=== PATIENT | female | born 1965 | race Caucasian/White ===

== ENCOUNTER 2025-01-22 13:38 | Outpatient (AMB) | payer OTHER, SELFPAY ==
--- NOTE | 2025-01-22 13:39 | A.OFFPC_ITS ---
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 Required: No Accompanied by: Self / Same As Patient Allergies Sulfa (Sulfonamide Antibiotics) Adverse Reaction (Severe, Verified 01/22/25 13:40) Shortness of Breath penicillin G Adverse Reaction (Intermediate, Verified 01/22/25 13:40) Hives Medication List - Last Reconciled 01/22/25 by Sylvie Hess MD albuterol sulfate 90 mcg/actuation 1 puff inhalation Q4H alprazolam 0.25 mg PO DAILY PRN ascorbate calcium (vitamin C) 500 mg PO DAILY azelaic acid 15% topical QAM biotin (Hair, Skin and Nails (biotin)) mcg PO calcium carbonate 600 mg PO DAILY cholecalciferol (vitamin D3) 50 mcg PO DAILY fluorouracil 5% appl topical BID PRN fluticasone furoate-vilanterol 200-25 mcg/dose (Breo Ellipta) 1 ea inhalation DAILY minoxidil 1.25 mg PO DAILY multivitamin 1 tab PO DAILY niacinamide 500 mg PO BID omeprazole 20 mg PO DAILY tretinoin 0.025% appl topical BEDTIME zinc acetate 25 mg PO DAILY Tobacco use date assessed: 01/22/25 Dental Screening Dental Screen Date: 01/22/25 Did you have a dental visit in the last 12 months?: No Did you have a dental problem in the last 6 months where you did not have access to dental care?: No HPI HPI Comments History of Present Illness Details The patient is a 59 year old female presenting for a physical. Anxiety: The patient reports increased anxiety recently due to switching schools after 15 years, describing herself as very anxious and neurotic. She took sertraline for anxiety but has tapered off recently. She also has a prescription for alprazolam 0.25 mg, which she uses as needed, primarily for flying. Reactive Airway Disease: For her reactive airway disease, the patient reports using Breo Ellipta daily and has an albuterol inhaler for as-needed use, which she rarely needs. Gastroesophageal Reflux Disease: The patient reports taking omeprazole 20 mg for heartburn, which she has been purchasing [id number]. Musculoskeletal Pain: The patient reports being achy, specifically in her hips, which has impacted her sleep and ability to exercise. She also reports pain in her elbow, which may be related to tendonitis. She has tried Advil for the pain. Rodrigues's Cyst: The patient has a Rodrigues's cyst in her right leg, diagnosed at [facility] over the summer. She received a cortisone injection which provided relief for about three weeks. History of Basal Cell Carcinoma: The patient has a history of basal cell carcinoma and follows with dermatology. She recently had a questionable lesion biopsied to rule out basal cell carcinoma, which was negative. She uses minoxidil and niacinamide as prescribed by her substation operator conversion. Excessive Daytime Sleepiness: The patient reports feeling tired easily and has trouble sleeping, which she attributes to being achy. She endorses a high chance of dozing off while sitting and reading, watching TV, sitting inactive in public, and as a passenger in a car. She also reports being able to sleep any time in the afternoon or after lunch. Her daughter has told her that she snores, but she denies waking up gasping for air. She has not had a home sleep study before. ESS scale score of 23. Health Maintenance: The patient had colonoscopy September 2024 done at [facility] Angel, which was normal with no polyps found per patient. Following the procedure, she experienced severe abdominal and shoulder pain, requiring an emergency room visit where she received morphine. A CT scan was performed to rule out perforation and cardiac issues, with results being normal. Her next colonoscopy is due in 5-7 years. Her mammogram is typically scheduled on a March. She has a gynecology appointment for a Pap smear scheduled for February 27 with PA at [facility]. Her last eye exam was about two years ago at [facility]. 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 Diagnostic Results: - Screening: PHQ-9 score was 0. - Screening: ARMANDO-7 score was 0. - Screening: Viroqua Sleepiness Scale sc ore was 23 out of 24. [facility] Medical History (Updated 01/22/25 @ 17:35 by Sylvie Hess MD) Snoring Routine medical exam Generalized anxiety disorder Basal cell carcinoma Reactive airway disease Family History (Updated 01/22/25 @ 13:48 by Beatriz Briceño CMA) Mother Colon polyp Father Atrial fibrillation Maternal Grandfather No problems noted. 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 1. Little interest or pleasure in doing things: not at all 2. Feeling down, depressed, or hopeless: not at all 3. Trouble falling or staying asleep, or sleeping too much: not at all 4. Feeling tired or having little energy: not at all 5. Poor appetite or overeating: not at all 6. Feeling bad about yourself - or that you are a failure or have let yourself or your family down: not at all 7. Trouble concentrating on things, such as reading the newspaper or watching television: not at all 8. Moving or speaking so slowly that other people could have noticed. Or the opposite - being so fidgety or restless that you have been moving around a lot more than usual: not at all 9. Thoughts that you would be better off or of hurting yourself in some way: not at all Total score: 0 Depression Screening Interpretation: Negative Depression Screening Done: Yes 77060 - PHQ-9 Billing: Yes Source: Developed by Drs. Aron Welch, Lucia Duncan, Jm Eubanks and colleagues, with an educational verito from [employer]. Thrive Questionnaire Date Thrive assessed: 01/22/25 I am a: Patient What is your living situation today?: I have a steady place to live Within the past 12 months, did the food you bought not last and you didn't have the money to get more?: Never true Within the past 12 months, did you worry whether your food would run out before you got money to buy more?: Never true Do you have trouble paying for medicines?: No Do you have trouble getting transportation to medical appointments?: No Do you have trouble paying your heating and electricity bill?: No Do you have trouble taking care of your child, family member or friend?: No Do you have trouble with day-to-day activities such as bathing, preparing meals, shopping, managing finances, etc.?: No Are you currently unemployed and looking for a job?: No Are you interested in more education?: No Please select the resources that you would like help with: None THRIVE Score: 0 AUDIT C Alcohol Use Questionnaire (AUDIT-C) 1. How often do you have a drink containing alcohol?: Monthly or less 2. How many drinks containing alcohol do you have on a typical day when you are drinking?: 1 or 2 3. How often do you have six or more drinks on one occasion?: Never Total Score: 1 ARMANDO-7 AMB Questionnaire ARMANDO-7 Date ARMANDO - 7 assessed: 01/22/25 Feeling nervous, anxious, or on edge: 0 = Not at all Not being able to stop or control worryin = Not at all Worrying too much about different things: 0 = Not at all Trouble relaxin = Not at all Being so restless that it is hard to sit still: 0 = Not at all Becoming easily annoyed or irritable: 0 = Not at all Feeling afraid as if something awful might happen: 0 = Not at all Total ARMANDO-7 score (0-4 normal; 5-9 mild; 10-14 moderate; 15-21 severe): 0 Source: Developed by Drs. Aron Welch, Lucia Duncan, Jm Eubanks and colleagues, with an educational verito from [employer]. Review of Systems Narrative Review of Systems - Respiratory: Denies wheezing. - Abdominal: Reports normal bowel sounds and denies pain on palpation. - Neurological/Sleep: Reports feeling tired easily, struggling with sleep, and excessive daytime sleepiness. - Musculoskeletal: Reports being achy, with hip and elbow pain. - Psychiatric: Reports increased anxiety and feeling neurotic related to a recent job change. Physical exam (Primary Care) Vital Signs: Last Vital Signs Temp 97.1 F 01/22/25 13:40 Pulse 78 01/22/25 13:40 Resp 16 01/22/25 13:40 BP 124/80 01/22/25 13:40 Pulse Ox 97 01/22/25 13:40 Oxygen Delivery Method Room Air 01/22/25 13:40 BMI result Body Mass Index 25.3 Tobacco/Smoking Status: Tobacco use Status Tobacco use date assessed 01/22/25 01/22/25 13:43 Patient Tobacco Use Status Former Tobacco user 01/22/25 13:50 e-Cigarette/Vaping Use Never Used 01/22/25 13:50 PHQ-9: PHQ-9 Score PHQ-9: Total score 0 01/22/25 16:20 Depression Screening Interpretation: Negative Thrive Assessment: Date of Thrive Assessment Date Thrive assessed 01/22/25 01/22/25 16:21 Narrative Physical Exam - Vitals: Blood pressure is 124/80. - Gen: NAD - Head/ENT: Cerumen impaction noted in the left ear; right ear is clear; oropharynx clear with no redness. - Eyes: Extraocular movements are intact. - Lungs: Clear to auscultation bilaterally; no wheezing. - Cardiovascular: Regular heart rhythm with a soft murmur noted. - Vascular: Carotid arteries are clear; no bruits auscultated. - Abdomen: Normal bowel sounds auscultated; soft and nontender to palpation. - Extremities: No swelling noted in both legs. Coding Level of Care Code Est Pt Prev Care 40-64y(78964) Add On Preventative Visit Only Diagnoses Generalized anxiety disorder F41.1 Routine medical exam Z00.00 Snoring R06.83 Mild intermittent reactive airway disease without complication J45.20 Asthma severity: mild Asthma persistence: intermittent Asthma complication type: uncomplicated Additional Codes PHQ-9 - 21887 - PHQ-9 Billing: Yes ([id number]) Assessment & Plan Assessment & Plan (1) Generalized anxiety disorder: Code(s): F41.1 - Generalized anxiety disorder Category: Medical (2) Routine medical exam: Code(s): Z00.00 - Encounter for general adult medical examination without abnormal findings Category: Medical (3) Snoring: Code(s): R06.83 - Snoring Category: Medical (4) Reactive airway disease: Code(s): J45.909 - Unspecified asthma, uncomplicated Category: Medical Qualifiers: Asthma severity: mild Asthma persistence: intermittent Asthma complication type: uncomplicated Qualified Code(s): J45.20 - Mild intermittent asthma, uncomplicated Plan Assessment and Plan 1. Annual physical and health maintenance - The patient is up to date on colonoscopy and is scheduled for her gynecological exam. - Will place lab orders for fasting labs, including a cholesterol profile and thyroid panel. 2. Excessive Daytime Sleepiness - The patient scored 23/24 on the Viroqua Sleepiness Scale, indicating excessive sleepiness. - This raises concern for sleep apnea, especially given her report of snoring and the potential risk while driving. - Plan is to refer her to the sleep clinic for a sleep study. 3. Musculoskeletal pain - The patient reports hip and elbow pain that interferes with sleep and exercise. - Advised to try topical pain patches (e.g., Salonpas), and to use Tylenol Arthritis or Extra Strength instead of Advil to avoid stomach irritation. - Also recommended low-impact exercises like water aerobics, stationary bike, and quad strengthening. 4. Reactive airway disease - The patient is stable on daily Breo Ellipta and rarely uses her albuterol inhaler. - A refill for Breo will be sent to the pharmacy. 5. Gastroesophageal reflux disease - The patient has been buying omeprazole [id number]. - A 90-day prescription for omeprazole 20 mg daily will be sent to the pharmacy. 6. Cerumen impaction, left ear - Advised the patient to use Debrox eardrops to soften the wax, followed by gentle irrigation. 7. Anxiety - The patient reports increased anxiety related to a new job but has tapered off her medication and notes she is in a better space mentally. - She has alprazolam for as-needed use. - Will monitor and she will reach out if symptoms worsen. 8. Follow-up - The patient will follow up in 4 months to review lab results and the outcome of the sleep study. Plan - Referral to sleep medicine for evaluation of excessive daytime sleepiness, with concern for sleep apnea. - Placed orders for fasting labs, including a cholesterol profile and thyroid panel. - Recommended low-impact exercises such as water aerobics, stationary bike, and quad strengthening for musculoskeletal pain. - Advised patient to use Tylenol Arthritis or Extra Strength for pain instead of Advil and to try topical pain patches at night. - as above Patient Instructions - Go for fasting lab work (do not eat or drink anything but water for 8-10 hours beforehand). - You will be contacted by the sleep clinic to schedule a sleep study to investigate your daytime sleepiness. - For your hip and knee pain, try low-impact exercises like water aerobics or using a stationary bike. - For pain, use Tylenol (Arthritis or Extra Strength) instead of Advil to protect your stomach. You can also try a pain patch, like Salonpas, on the area before bed. Orders: Orders Lipid Panel Today Z00.00 - Encounter for general adult medical examination without abnormal findings Comprehensive Met. Panel Today Z00.00 - Encounter for general adult medical examination without abnormal findings Complete Blood Count Auto Diff Today Z00.00 - Encounter for general adult medical examination without abnormal findings TSH reflex Free T4 Today Z00.00 - Encounter for general adult medical examination without abnormal findings Referrals Sleep Medicine Referral R06.83 - Snoring Medications: New fluticasone furoate-vilanterol 200-25 mcg/dose (Breo Ellipta) 1 ea inhalation DAILY 60 ea 11RF omeprazole 20 mg PO DAILY 90 caps 3RF
[2025-01-22 13:40] VITALS: BP 124/80; PULSE 78; RESP 16; TEMP 36.2; O2SAT 97; BMI 25.3
--- OUTSIDE RECORDS SUMMARY | 2025-01-22 19:55 | XMS_ITS | Encounter Summary ---
Author Organization [facility] Address [address] [place] [address] Phone Care Team Providers Care Grading Clerk Name Role Phone Sylvie Hess MD Primary Care Provider + Encounter Details Date Type Department Care Team (Latest Contact Info) Description 03/02/2019 Transcribe Orders [facility] Lab Main [address] [place] [address] Renita Lang MD, MD [address] [place] [address] [email or web address] Crushing injury of multiple sites of trunk (Primary Dx) Social History Tobacco Use Types Packs/Day Years Used Date Smoking Tobacco: Never Smokeless Tobacco: Never Comments Unknown Sex and Gender Information Value Date Recorded Sex Assigned at Not on file Legal Sex Female 6:58 PM EST Gender Identity Not on file Sexual Orientation Not on file documented as of this encounter Plan of Treatment Upcoming Encounters Date Type Department Care Team (Late st Contact Info) Description 03/14/2025 10:00 AM EST Office Visit [facility] [address] [place], [place] [id number] Alejandra Carrera MD [address] [place] [address], [address] [place] [id number] documented as of this encounter Results * (ABNORMAL) Wound culture/smear (03/02/2019 4:25 PM EST) Special Requests GRAM STAIN, CULTURE, SENSITIVITY 03/02/2019 7:49 PM EST [facility] GRAM STAIN Rare POLYS 03/03/2019 5:41 AM EST [facility] GRAM STAIN NO ORGANISMS SEEN 03/03/2019 5:41 AM EST [facility] Wound Culture/Smear Few COAGULASE NEGATIVE STAPHYLOCOCCUS( A) 03/04/2019 11:16 AM EST [facility] Skin 03/02/2019 4:25 PM EST 03/02/2019 9:11 PM EST us Renita Lang MD LAB MICROBIOLOGY CULTURE ORDER ANITA Final Result [facility] [address] [place] [address] documented in this encounter Visit Diagnoses Diagnosis Crushing injury of multiple sites of trunk- Primary documented in this encounter Care Teams Grading Clerk Relationship Specialty Start Date End Date Sylvie Hess MD PCP - General Internal Medicine 06/01/18 documented as of this encounter Additional Source Comments The information contained in this document represents components of the legal health record. It is not the complete legal health record.[facility]
--- OUTSIDE RECORDS SUMMARY | 2025-01-22 19:55 | XMS_ITS | Encounter Summary ---
Author Organization [facility] Address [address] [place] [address] Phone Care Team Providers Care Early Years Teacher Name Role Phone Sylvie Hess MD Primary Care Provider + Reason for Visit * Reason Comments Medication Refill Encounter Details Date Type Department Care Team (Late Contact Info) Description 10/08/2019 Refill [facility] [address] [place] [address] [address] [place] [address] Alejandra Carrera MD [address] [place] [phone] [email or web address] Medication Refill Social History Tobacco Use Types Packs/Day Years Used Date Smoking Tobacco: Never Smokeless Tobacco: Never Comments Unknown Sex and Gender Information Value Date Recorded Sex Assigned at Not on file Legal Sex Female 6:58 PM EST Gender Identity Not on file Sexual Orientation Not on file documented as of this encounter Plan of Treatment Upcoming Encounters Date Type Department Care Team (Late Contact Info) Description 03/14/2025 10:00 AM EST Office Visit [facility] [address] [place] [address] Alejandra Carrera MD [address] [place] [phone] [email or web address] documented as of this encounter Visit Diagnoses Diagnosis Other acne documented in this encounter Care Teams Early Years Teacher Relationship Specialty Start Date End Date Sylvie Hess MD PCP - General Internal Medicine 06/01/18 documented as of this encounter Additional Source Comments The information contained in this document represents components of the legal health record. It is not the complete legal health record.[facility]
--- OUTSIDE RECORDS SUMMARY | 2025-01-22 19:55 | XMS_ITS | Clinical Summary ---
Author Organization [facility] Address [address] [place] [address] Phone Care Team Providers Care Packing Attendant Name Role Phone Sylvie Hess MD Primary Care Provider + Allergies Active Allergy Reactions Criticality Noted Date Comments Penicillins Hives 04/01/2004 Sulfa (Sulfonamide Antibiotics) Itching,Other (See Comments) 04/01/2004 Bronchospasm or Wheezing Medications spironolactone (ALDACTONE) 50 MG tablet Take 1 tablet by mouth 3 (three) times a day. 1 Active mupirocin (BACTROBAN) 2 % ointment Apply topically 3 (three) times a day. Apply to affected area tid for at least 1 week 22 g 1 0 Active Additional Information Patient not taking.Reported on 11/29/2019 calcipotriene (DOVONEX) 0.005 % creamIndication s:Actinic keratosis Apply topically to the face 2 times a day for 4 days in combination with efudex cream. 60 g 1 Active Additional Information Patient not taking.Reported on 03/09/2024 hydrocortisone 2.5 % cream Apply topically 2 (two) times a day. 28 g 2 Active Additional Information Patient not taking.Reported on 06/18/2022 minocycline (MINOCIN) 100 MG capsuleIndicati ons:Other acne take 1 capsule by mouth twice daily 60 capsule 2 4 Active tretinoin (RETIN-A) 0.025 % creamIndication s:Other acne APPLY TOPICALLY TO FACE EVERY NIGHT AT BEDTIME 45 g 2 4 Active erythromycin-be nzoyl peroxide (BENZAMYCIN) gelIndications: Other acne Apply topically 2 (two) times a day. 279.6 g 1 4 Active fluorouraciL (EFUDEX) 5 % creamIndication s:Actinic keratosis Apply topically to the affected area 2 times a day for 2 weeks 40 g 5 Active niacinamide 500 mg tabletIndicatio ns:History of squamous cell carcinoma of skin Take 1 tablet (500 mg total) by mouth 2 (two) times a day with meals. 60 tablet 11 5 Active Active Problems Problem Noted Date Diagnosed Date Basal cell carcinoma of lower eyelid, right 12/10 Basal cell carcinoma of skin 09/22/2011 Overview (03/31/2014): Basal cell carcinoma of skin Squamous cell carcinoma of skin 09/22/2011 Overview (03/31/2014): Squamous cell carcinoma of skin Resolved Problems Problem Noted Date Diagnosed Date Resolved Date Basal cell carcinoma of left forehead 04/02/2020 04/02/2020 Basal cell carcinoma of scalp 08/29/2019 08/29/2019 Basal cell carcinoma, forehead 02/21/2019 02/21/2019 Basal cell carcinoma of right ala nasi 07/26/2018 07/26/2018 Social History Tobacco Use Types Packs/Day Years Used Date Smoking Tobacco: Never Smokeless Tobacco: Never Education Answer Date Recorded Are you interested in more education? Not on aracely e 06/12/2022 Are you concerned about learning? Not on file 06/12/2022 No 06/12/2022 No 06/12/2022 Digital Access Answer Date Recorded No 07/05/2022 No 07/05/2022 No 07/05/2022 Reliable internet access at home? Not on file 07/05/2022 Device with a working camera? Not on file Comments Unknown Sex and Gender Information Value Date Recorded Sex Assigned at Not on file Legal Sex Female 6:58 PM EST Gender Identity Not on file Sexual Orientation Not on file Plan of Treatment Upcoming Encounters Date Type Department Care Team (Late st Contact Info) Description 03/14/2025 10:00 AM EST Office Visit [facility] [address] [place] [address] Alejandra Carrera MD [address] [place] [facility] [place] [address] [email or web address] Health Maintenance Due Date Last Done Comments LIPID PANEL 1967 POTASSIUM LEVEL 1967 DEPRESSION SCREENING 1979 HEPATITIS C SCREENING 1985 HIV ONE-TIME SCREENING (18-65 YEARS) 1985 PAP SMEAR 02/03/1988 MAMMOGRAM 2007 COLOGUARD 02/03/2012 COLONOSCOPY 02/03/2012 COLORECTAL CANCER SCREENING 02/03/2012 FIT TEST 02/03/2012 FOBT 02/03/2012 SIGMOIDOSCOPY 02/03/2012 VIRTUAL COLONOSCOPY 02/03/2012 PNEUMOCOCCAL VACCINES (50+ years) (1 of 1 - PCV) 2017 ZOSTER VACCINES (1 of 2) 2017 Adult Td,Tdap Booster 04/04/2024 04/04/2014 INFLUENZA VACCINE (#1) 2024 2, 12/01/2020, 12/20/2019, Additional history exists COVID-19 VACCINE (1 - 2024- season) 2024 RSV VACCINE (1 - 1-dose 75+ series) 2042 SMOKING STATUS SCREENING (Once After 26 Yrs) Completed 03/02/2019 HEPATITIS A VACCINES Aged Out No long er eligible based on patient's age to complete this topic HIB VACCINES Aged Out No longer eligi ble based on patient's age to complete this topic MENINGOCOCCAL VACCINES (ACWY) Aged Out No longer eligible based on patient's age to complete this topic MENINGOCOCCAL VACCINES (B) Aged Out N o longer eligible based on patient's age to complete this topic Medical Devices Not on file Insurance [facility] [place] [id number] Care Teams Packing Attendant Relationship Specialty Start Date End Date Sylvie Hess MD PCP - General Internal Medicine 06/01/18 Additional Source Comments The information contained in this document represents components of the legal health record. It is not the complete legal health record.[facility]
--- OUTSIDE RECORDS SUMMARY | 2025-01-22 19:55 | XMS_ITS | Clinical Summary ---
Author Organization [facility] Address [address] [place] [address] Phone Care Team Providers Care Lunchroom Attendant Name Role Phone Sylvie Hess MD Primary Care Provider [phone] Allergies Active Allergy Reactions Criticality Noted Date Comments Penicillin G Hives 05/03/2024 Sulfa (Sulfonamide Antibiotics) Hives 04/09 Medications ALPRAZolam (XANAX) 0.25 mg tablet Take 1 tablet (0.25 mg total) by mouth. Active aspirin 81 mg EC tablet Take 1 tablet (81 mg total) by mouth 1 (one) time each day. Active B complex-vitamin C-folic acid (ROZ-NENA) 1-60-300 mg-mg-mcg tablet Take 1 tablet by mouth 1 (one) time each day with breakfast. Active fluticasone furoate-vilante roL (Breo Ellipta) 200-25 mcg/dose inhaler Inhale by mouth. Act juaquin calcium carbonate-simet hicone 1,000-60 mg tablet,chewable Chew. Acti ve MULTIVITAMIN ORAL Take by mouth. Activ e albuterol HFA (PROAIR HFA ; PROVENTIL HFA ; VENTOLIN HFA) 90 mcg/actuation inhaler Inhale 2 puffs by mouth every 6 (six) hours if needed for wheezing. Active estradioL (Vagifem) 10 mcg tablet vaginal tablet Insert 1 tablet (10 mcg total) into the vagina 1 (one) time each day. Active cholecalciferol (VITAMIN D-3) 50 mcg (2,000 unit) tablet Take 1 tablet (2,000 Units total) by mouth 1 (one) time each day. Active VITAMIN E ACETATE ORAL Take by mouth. Ac tive fluticasone-sabra meterol (ADVAIR DISKUS) 250-50 mcg/dose diskus inhaler Inhale 1 puff by mouth 2 (two) times a day. Rinse mouth with water after use to reduce aftertaste and incidence of candidiasis. Do not swallow. Active bisacodyL (DULCOLAX) 5 mg EC tablet Take 2 tablets by mouth right before beginning bowel prep. See instructions provided by the office 2 tablet 5 Active polyethylene glycol (Golytely) 236-22.74-6.74 -5.86 gram solution Take 4L by mouth once for one dose. May substitue any PEG. Starting at 2PM the day before your procedure drink 1 8oz glasses at your own pace until you complete half of the gallon. Finish 2nd half of the gallon at 8PM. 4000 mL 5 Active azelaic acid (FINACEA) 15 % gel APPLY TO FACE EVERY MORNING 5 Active cetirizine (ZyrTEC) 10 mg tablet Take 1 tablet (10 mg total) by mouth 1 (one) time each day. 5 Active fluorouraciL (EFUDEX) 5 % cream APPLY TOPICALLY TO THE AFFECTED AREA 2 TIMES A DAY FOR 2 WEEKS 5 Active minocycline (MINOCIN,DYNACI N) 100 mg capsule Take 1 capsule (100 mg total) by mouth 2 (two) times a day. 5 Active niacinamide 500 mg tablet Take 1 tablet (500 mg total) by mouth 2 (two) times a day with meals. 5 Active tretinoin (RETIN-A) 0.025 % cream APPLY TO AFFECTED AREAS AT BEDTIME AND FOLLOW WITH A MOISTURIZER. 5 Active minoxidiL (LONITEN) 2.5 mg tablet Take 0.5 tablets (1.25 mg total) by mouth 1 (one) time each day. 5 Active biotin 5 mg capsule Take 1 capsule (5 mg total) by mouth. 9 Active spironolactone (ALDACTONE) 50 mg tablet Take 1 tablet (50 mg total) by mouth 3 times daily. 1 Active sertraline (ZOLOFT) 100 mg tablet Take 1 tablet (100 mg total) by mouth daily. Active mupirocin (BACTROBAN) 2 % ointment Apply topically 3 times daily. 0 Active hydrocortisone 2.5 % cream Apply topically 2 times daily. 2 Active erythromycin-be nzoyl peroxide (BENZAMYCIN) gel Apply topically 2 times daily. 4 Active calcipotriene (DOVONEX) 0.005 % cream Apply topically to the face 2 times a day for 4 days in combination with efudex cream. 1 Active Active Problems Problem Noted Date Diagnosed Date Bilateral foot pain 12/05/2024 Chronic sinus infection 12/05/2024 Costochondritis 12/05/2024 Discoloration of skin 12/05/2024 Lung mass 12/05/2024 Muscle spasm 12/05/2024 Premature atrial complex 12/05/2024 Reactive airway disease 12/05/2024 Basal cell carcinoma of lower eyelid, right 12/10 Basal cell carcinoma of skin 09/22/2011 Overview (12/05/2024): Basal cell carcinoma of skin Surgical History Surgery Date Site/Laterality Comments COLONOSCOPY Medical History Medical History Date Comments Lung nodule Anxiety Asthma Social History Tobacco Use Types Packs/Day Years Used Date Smoking Tobacco: Former Cigarettes Smokeless Tobacco: Never Tobacco Cessation:Counseling Given: Not Answered Alcohol Use Standard Drinks/Week Comments Yes 0 (1 standard drink = 0.6 oz pur e alcohol) Interpersonal Safety Answer Date Record ed Physical Abuse Unrecognized value 09/08/2024 Verbal Abuse Unrecognized value 09/08/2024 Comments Unknown Sex and Gender Information Value Date Recorded Sex Assigned at Not on file Legal Sex Female 10:16 PM EST Gender Identity Not on file Sexual Orientation Not on file Last Filed Vital Signs Vital Sign Reading Time Taken Comments Blood Pressure 140/70 09/08/2024 10:00 PM EDT Pulse 81 09/08/2024 10:00 PM EDT Temperature 36.5 C (97.7 F) 09/08/2024 10:00 PM EDT Respiratory Rate 18 09/08/2024 10:00 PM EDT Oxygen Saturation 100% 09/08/2024 10:00 PM EDT Inhaled Oxygen Concentration - - Weight 72.6 kg (160 lb) 09/08/2024 7:46 PM EDT Height 172.7 cm (5' 8 ) 09/08/2024 7:46 PM EDT Body Mass Index 24.33 09/08/2024 7:46 PM EDT Plan of Treatment Health Maintenance Due Date Last Done Comments Breast Cancer Screening 1965 Drug Screen 1965 Non-Opioid Controlled Substance Agreement 1965 Hepatitis B Vaccines (1 of 3 - 19+ 3-dose series) 1986 Cervical Cancer Screening: Pap Smear 02/03/1988 Pneumococcal Vaccine: 50+ Years (1 of 1 - PCV) 2017 RSV Immunization Adult Patients (1 - Risk 50-74 years 1-dose series) 2017 HIV Screening 08/31/2023 Hepatitis C Screening 08/31/2023 Social Influencers of Health Screening 08/31/2023 Depression Screening 02/09/2024 DTaP,Tdap,and Td Vaccines (2 - Td or Tdap) 04/04/2024 04/04/2014 COVID-19 Vaccine ( - season) 2024 11/13/2023, 03/06/2023, 11/16/2021, Additional history exists Influenza Vaccine (#1) 2024 , 01/08/2023, 11/16/2021, Additional history exists Colorectal Cancer Screening: Colonoscopy 09/08/2034 09/08/2024 Zoster Vaccines Completed 05/14/2023, 03/06/2023 HIB Vaccines Aged Out No longer eligi ble based on patient's age to complete this topic HPV Vaccines Aged Out No longer eligi ble based on patient's age to complete this topic Hepatitis A Vaccines Aged Out No long er eligible based on patient's age to complete this topic IPV Vaccines Aged Out No longer eligi ble based on patient's age to complete this topic MMR Vaccines Aged Out No longer eligi ble based on patient's age to complete this topic Meningococcal ACWY Vaccine Aged Out N o longer eligible based on patient's age to complete this topic Meningococcal B Vaccine Aged Out No l onger eligible based on patient's age to complete this topic RSV Immunization Patients Under 20 months Aged Out No longer eligible based on patient's age to complete this topic Varicella Vaccines Aged Out No longer eligible based on patient's age to complete this topic Procedures Procedure Name Priority Date/Time Associated Diagnosis Comments COLONOSCOPY Routine 09/08/2024 2:23 PM EDT Hx of colonic polyps from Last 3 Months or Most Recently Relevant to Health Maintenance Results * COLONOSCOPY Anesthesia - MAC; [facility] ENDOSCOPY (09/08/2024 2:23 PM EDT) Anatomical Region Laterality Modality Endoscopy 09/08/2024 2:02 PM EDT Impressions 09/08/2024 2:24 PM EDT - The examined portion of the ileum was normal. - The entire examined colon is normal on direct and retroflexion views. - No specimens collected. Recommendation: - Repeat colonoscopy in 5-10 years for screening purposes. Narrative 09/08/2024 2:24 PM EDT [facility] GI Patient Name: Mariel Coello Procedure Date: 09/08/2024 2:02 PM Date of : 1965 Age: 59 Gender: Female Note Status: Finalized Attending MD: Anjali Angel MD, Procedure Date No Time: 09/08/2024 Procedure: Colonoscopy Indications: Screening for colorectal malignant neoplasm Providers: Anjali Angel MD Referring MD: Anjali Angel MD, Sylvie Hess MD Medicines: Propofol per Anesthesia Complications: No immediate complications. Estimated Blood Loss: Estimated blood loss: none. Procedure: Pre-Anesthesia Assessment: - ASA Grade Assessment: II - A patient with mild systemic disease. After I obtained informed consent, the scope was passed under direct vision. Throughout the procedure, the patient's blood pressure, pulse, and oxygen saturations were monitored continuously.The Olympus Pediatric Colonoscope was introduced through the anus and advanced to the terminal ileum. The colonoscopy was performed without difficulty. The patient tolerated the procedure well. The quality of the bowel preparation was good. Findings: The perianal and digital rectal examinations were normal. The terminal ileum appeared normal. The entire examined colon appeared normal on direct and retroflexion views. Procedure Code(s): --- Professional --- G0121, Colorectal cancer screening; colonoscopy on individual not meeting criteria for high risk Diagnosis Code(s): --- Professional --- Z12.11, Encounter for screening for malignant neoplasm of colon CPT copyright 2020 [employer]. All rights reserved. The codes documented in this report are preliminary and upon data services developer review may be revised to meet current compliance requirements. Anjali Angel MD 09/08/2024 2:23:59 PM This report has been signed electronically.Anjali Angel MD Number of Addenda: 0 Note Initiated On: 09/08/2024 2:02 PM Scope In: Scope Out: Endoscopy Department at [facility] - [address] [place] [id number] Procedure Note Anjali Angel MD - 09/08/2024 [facility] GI Patient Name: Mariel Coello Procedure Date: 09/08/2024 2:02 PM Date of : 1965 Age: 59 Gender: Female Note Status: Finalized Attending MD: Anjali Angel MD, Procedure Date No Time: 09/08/2024 Procedure: Colonoscopy Indications: Screening for colorectal malignant neoplasm Providers: Anjali Angel MD Referring MD: Anjali Angel MD, Sylvie Hess MD Medicines: Propofol per Anesthesia Complications: No immediate complications. Estimated Blood Loss: Estimated blood loss: none. Procedure: Pre-Anesthesia Assessment: - ASA Grade Assessment: II - A patient with mild systemic disease. After I obtained informed consent, the scope was passed under direct vision. Throughout theprocedure, the patient's blood pressure, pulse, and oxygen saturations were monitored continuously.The Olympus Pediatric Colonoscope was introduced through theanus and advanced to the terminal ileum. The colonoscopy was performed without difficulty. The patient tolerated the procedure well. The quality of thebowel preparation was good. Findings: The perianal and digital rectal examinations were normal. The terminal ileum appeared normal. The entire examined colon appeared normal on direct and retroflexion views. Procedure Code(s): --- Professional --- G0121, Colorectal cancer screening; colonoscopy on individual not meeting criteria for high risk Diagnosis Code(s): --- Professional --- Z12.11, Encounter for screening for malignantneoplasm of colon CPT copyright 2020 [employer]. All rights reserved. The codes documented in this report are preliminary and upon data services developer reviewmay be revised to meet current compliance requirements. Anjali Angel MD 09/08/2024 2:23:59 PM This report has been signed electronically.Anjali Angel MD Number of Addenda: 0 Note Initiated On: 09/08/2024 2:02 PM Scope In: Scope Out: Endoscopy Department at [facility] - [address] [place] [id number] IMPRESSION: - The examined portion of the ileum was normal. - The entire examined colon is normal on direct and retroflexion views. - No specimens collected. Recommendation: - Repeat colonoscopy in 5-10 years for screening purposes. Anjali Angel MD GI~PROCEDURE ORDERABLES Final Result from Last 3 Months or Most Recently Relevant to Health Maintenance Insurance [facility] Care Teams Lunchroom Attendant Relationship Specialty Start Date End Date Sylvie Hess MD [id number] [place] [address] PCP - General Internal Medicine 05/03/24
== END 2025-01-22 14:29 | disposition home or self-care (01) ==
LOC: HO.HMCHD 13:39
PROVIDERS: PCP Internal Medicine; Visit Provider Internal Medicine
DX: Z00.00 Encounter for general adult medical examination without abnormal findings (principal); F41.1 Generalized anxiety disorder; R06.83 Snoring; J45.20 Mild intermittent asthma, uncomplicated

== ENCOUNTER → 2025-01-22 13:38 | Outpatient (BNVA) | payer OTHER, SELFPAY | PROVIDERS: PCP Internal Medicine; Visit Provider Internal Medicine | DX: Z00.00 Encounter for general adult medical examination without abnormal findings (principal); F41.1 Generalized anxiety disorder; J45.20 Mild intermittent asthma, uncomplicated; R06.83 Snoring; M79.18 Myalgia, other site; M71.21 Synovial cyst of popliteal space [Baker], right knee; H61.22 Impacted cerumen, left ear; Z85.828 Personal history of other malignant neoplasm of skin; Z76.89 Persons encountering health services in other specified circumstances; Z13.31 Encounter for screening for depression; Z13.39 Encounter for screening examination for other mental health and behavioral disorders; Z87.891 Personal history of nicotine dependence | CPT/HCPCS: 96127 ==